=== PATIENT | male | born 1935 | race Caucasian/White ===

== ENCOUNTER 2019-05-20 17:13 | Inpatient (IN) | payer OTHER ==
[~2019-05-20] VITALS: Ht 180.3 cm; Wt 85.3 kg
[2019-05-20 17:38] LABS: BASOPHILS ABSOLUTE AUTO 0.01 K/mm3 (0.00-0.23); BASOPHILS PERCENT AUTO 0 % (0-2); EOSINOPHILS PERCENT AUTO 0 % (0-6); Hematocrit 36.2 % (37.0-53.0); IMMATURE GRAN ABSOLUTE AUTO 0.06 K/mm3 (0.00-0.10); IMMATURE GRAN PERCENT AUTO 1 % (0-1); LYMPHOCYTES ABSOLUTE AUTO 0.86 K/mm3 (0.84-5.20); LYMPHOCYTES PERCENT AUTO 7 % (21-46); MONOCYTES ABSOLUTE AUTO 0.82 K/mm3 (0.16-1.47); MONOCYTES PERCENT AUTO 6 % (4-13); Mean Corpuscular HGB 28.4 pg (26.0-34.0); Mean Corpuscular HGB Conc 30.4 g/dL (31.5-36.5); Mean Corpuscular Volume 94 fL (80-100); Mean Platelet Volume 11.3 fL (9.1-12.4); NEUTROPHILS ABSOLUTE AUTO 11.14 K/mm3 (1.96-9.15); NEUTROPHILS PERCENT AUTO 86 % (41-73); Platelet Count 290 K/mm3 (150-400); RDW Standard Deviation 54.6 fL (35.1-46.3); Red Blood Cell Count 3.87 M/mm3 (4.30-5.90); White Blood Cell Count 12.89 K/mm3 (4.00-11.30)
[2019-05-20 17:50] LABS: Alanine Aminotransfer (ALT/SGP 495 U/L (12-78); Albumin, Blood 2.7 g/dL (3.4-5.0); Albumin/Globulin Ratio 0.8 (0.8-1.8); Alk Phos 80 U/L (50-136); Anion Gap 6 mmol/L (6-16); Aspartate Aminotrans (AST/SGOT 343 U/L (12-37); Bilirubin, Total 1.2 mg/dL (0.1-1.0); Blood Urea Nitrogen 51 mg/dL (8-24); Bun/Creatinine Ratio 31.9 (12.0-20.0); CO2, Blood 30 mmol/L (21-32); CPK Creatine Kinase 591 U/L (39-308); Chloride, Blood 105 mmol/L (98-108); Ethanol (Alcohol), Blood, Med <3 mg/dL; Globulin, Blood 3.3 g/dL (2.2-4.0); Glomerular Filtration Rate 44 (60-); Glucose, Blood 110 mg/dL (70-99); Potassium, Blood 3.6 mmol/L (3.5-5.5); Sodium, Blood 141 mmol/L (136-145)
[2019-05-20 17:53] LABS: International Normalized Ratio 1.38; Prothrombin Time Results 14.5 Sec (9.7-11.5)
[2019-05-20 18:08] LABS: Creatine Kinase MB 29.7 ng/mL (0.0-3.6)
--- NOTE | 2019-05-20 23:00 | NUR ---
INITIAL ASSESSMENT PATIENT ARRIVED TO UNIT AT 2245. PATIENT ORIENTED TO SELF, FAMILY, TOWN, YEAR. PATIENT DOES NOT KNOW CURRENT PRESIDENT, THAT HE IS IN THE HOSPITAL. PATIENT SPEECH GARBLED AND DIFFICULT TO UNDERSTAND AT TIMES. PATIENT WEAK BUT ABLE TO MOVE ALL EXTREMITIES AND ASSIST WITH REPOSITIONING. PATIENT DENIES PAIN. PATIENT AFEBRILE. PATIENT SATTING 90% AND GREATER ON 4 L NC. PATIENT HAS MOIST, NONPRODUCTIVE COUGH. LUNGS CLEAR IN UPPER LOBES AND DIMINISHED IN LOWER LOBES. PATIENT IN SR TO ST WITH PACS, PVCS AND RBBB. HR 90S TO LOW 100S. SBP 140S TO 150S. TRACE EDEMA NOTED TO BUES. 1+ EDEMA TO THIGHS, 2+ EDEMA TO BLES, AND 3+ EDEMA NOTED TO BILAT FEET AND ANKLES. PATIENT HAVING LOOSE BMS. PATIENT COVERED IN FECES UPON ARRIVAL TO UNIT. PATIENT CLEANED IN ER AND AGAIN UPON ARRIVAL TO ICU. PATIENT HAS NOT VOIDED SINCE ARRIVING TO UNIT. GROIN/ WALE AREA REDDENED AND RASHY- CALAZIME CREAM APPLIED. URETHRAL MEATUS EDEMATOUS. SCRATCHES NOTED TO ALL EXTREMITIES. PICS IN PATIENT CHART. NS INFUSING AT 75 MLS/ HOUR. PATIENT GETTING ZOSYN FOR ANTIBIOTIC. BED LOW, CALL LIGHT IN REACH, BED ALARM ON. PATIENT ORIENTED TO UNIT, ROOM AND CALL SYSTEM. WILL CONTINUE TO MONITOR PATIENT FREQUENTLY THROUGHOUT SHIFT.
[2019-05-21 00:14] LABS: Source, Urine Catheter
[2019-05-21 00:18] LABS: Appearance, Urine Clear (Clear); Blood, Urine 4+ (Neg); Color, Urine Amber (P-Yellow); Glucose Qualitative, Urine Neg (Neg); Ketones, Urine 1+ (Neg); Leukocyte Esterase, Urine 1+ (Neg); Nitrite, Urine Neg (Neg); Protein, Urine 3+ (Neg); Specific Gravity, Urine 1.025 (1.003-1.022); Urobilinogen, Urine 2+ (Normal)
[2019-05-21 00:23] LABS: Bilirubin, Urine 1+ (Neg)
[2019-05-21 00:25] LABS: Amorphous Light (0-Heavy); Bacteria Few /hpf; Squamous Epithelial Cells Not Seen /hpf (Few); White Blood Cells, Urine 0-2 /hpf (0-5)
[2019-05-21 00:28] LABS: U Amphetamine Screen Not Detected; U Barbituate Screen Not Detected; U Benzodiazapine Screen Not Detected; U Buprenorphine Screen Not Detected; U Cannabinoids Screen DETECTED; U Cocaine Screen Not Detected; U Methadone Screen Not Detected; U Methamphetamine Screen Not Detected; U Opiates Screen Not Detected; U Oxycodone Screen Not Detected; U Phencyclidine Screen Not Detected; U Propoxyphene Screen Not Detected
[2019-05-21 00:29] LABS: Adenovirus Not Detected (NOT DETECT); Bordetella pertussis Not Detected (NOT DETECT); Chlamydophila pneumoniae Not Detected (NOT DETECT); Coronavirus 229E Not Detected (NOT DETECT); Coronavirus HKU1 Not Detected (NOT DETECT); Coronavirus NL63 Not Detected (NOT DETECT); Coronavirus OC43 Not Detected (NOT DETECT); Human Metapneumovirus Not Detected (NOT DETECT); Human Rhinovirus/Enterovirus Not Detected (NOT DETECT); Influenza A Not Detected (NOT DETECT); Influenza A/2009-H1 Not Detected (NOT DETECT); Influenza A/H1 Not Detected (NOT DETECT); Influenza A/H3 Not Detected (NOT DETECT); Influenza B Not Detected (NOT DETECT); Mycoplasma pneumoniae Not Detected (NOT DETECT); Parainfluenza Virus 1 Not Detected (NOT DETECT); Parainfluenza Virus 2 Not Detected (NOT DETECT); Parainfluenza Virus 3 Not Detected (NOT DETECT); Parainfluenza Virus 4 Not Detected (NOT DETECT); Respiratory Syncytial Virus Not Detected (NOT DETECT)
[2019-05-21 02:04] LABS: Adenovirus F 40/41 Not Detected (NOT DETECT); Astrovirus Not Detected (NOT DETECT); Campylobacter Sp Not Detected (NOT DETECT); Cryptosporidium Not Detected (NOT DETECT); Cyclospora Cayetanensis Not Detected (NOT DETECT); E. Coli O157 Not Detected (NOT DETECT); Entamoeba Histolytica Not Detected (NOT DETECT); Enteroaggregative E. coli-EAEC Not Detected (NOT DETECT); Enteropathogenic E. coli-EPEC Not Detected (NOT DETECT); Enterotoxigenic E. coli-ETEC Not Detected (NOT DETECT); Giardia Lamblia Not Detected (NOT DETECT); Norovirus GI/GII Not Detected (NOT DETECT); Plesiomonas Shigelloides Not Detected (NOT DETECT); Rotavirus A Not Detected (NOT DETECT); Salmonella Sp Not Detected (NOT DETECT); Sapovirus Not Detected (NOT DETECT); Shiga Toxin-prod E. coli-STEC Not Detected (NOT DETECT); Shigella/Enteroin E. coli-EIEC Not Detected (NOT DETECT); Vibrio Cholerae Not Detected (NOT DETECT); Vibrio Sp Not Detected (NOT DETECT); Yersinia Enterocolitica Not Detected (NOT DETECT)
[2019-05-21 02:18] LABS: Troponin I 6.73 ng/mL (0.000-0.040)
[2019-05-21 02:33] LABS: Creatine Kinase MB 18.9 ng/mL (0.0-3.6); Creatine Kinase MB Index 5.4 (0.0-4.0)
[2019-05-21 03:39] LABS: Hematocrit 34.2 % (37.0-53.0); Hemoglobin 10.1 g/dL (13.5-17.5); Mean Corpuscular HGB 27.9 pg (26.0-34.0); Mean Corpuscular HGB Conc 29.5 g/dL (31.5-36.5); Mean Corpuscular Volume 95 fL (80-100); Mean Platelet Volume 11.4 fL (9.1-12.4); Platelet Count 234 K/mm3 (150-400); RDW Standard Deviation 55.8 fL (35.1-46.3); Red Blood Cell Count 3.62 M/mm3 (4.30-5.90)
[2019-05-21 04:09] LABS: Bilirubin, Total 0.9 mg/dL (0.1-1.0); Bun/Creatinine Ratio 31.3 (12.0-20.0); Calcium, Blood 9.2 mg/dL (8.5-10.1); Creatinine, Blood 1.63 mg/dL (0.60-1.20); Globulin, Blood 3.1 g/dL (2.2-4.0); Total Protein, Blood 6.1 g/dL (6.4-8.2)
--- NOTE | 2019-05-21 04:30 | NUR ---
PATIENT SLEEPING SOUNDLY UPON ENTERING ROOM. NEURO STATUS REMAINS UNCHANGED. PATIENT AFEBRILE. NO SIGNS OF PAIN. PATIENT SATTING 90% AND GREATER ON 3 L NC. PATIENT IN SR WITH PACS, PVCS AND BBB. HR 80S TO 90S. SBP IN THE 140S. NGUYỄN IN PLACE, DRAINING DARK TEA COLORED URINE. NO OTHER ACUTE CHANGES TO NOTE ON AT THIS TIME. WILL CONTINUE TO MONITOR.
[2019-05-21 06:03] LABS: PCO2 Arterial 63.8 mmHg (35-45); PO2 Arterial 79.7 mmHg (80-100)
--- NOTE | 2019-05-21 06:13 | NUR ---
PATIENT PLACED ON BIPAP SHORT TIME AGO SATURATIONS BEGAN DROPPING. PATIENT PULLING SMALL TIDAL VOLUMES, RANGING FROM 40S TO LOW HUNDREDS. DR. NAVA CALLED TO BEDSIDE AFTER PATIENT PLACED ON BIPAP AND CONTINUING TO HAVE SMALL TIDAL VOLUMES. DR. NAVA TO BEDSIDE. ORDERED FOR NARCAN 1 MG AND TO CONTINUE MONITORING. INFORMED THAT DRUG SCREEN CAME BACK POSITIVE ONLY FOR CANNIBINOIDS AND THAT NARCAN GIVEN AFTER EMS ARRIVED AND DID NOT AROUSE PATIENT AT ALL. ABG OBTAINED AND RESULTS CALLED TO DR. NAVA BY CHARGE NURSE TORIBIO RENDON. CHARGE NURSE ALSO INFORMED THAT PATIENT'S FIO2 INCREASED ON BIPAP AND THAT PATIENT CONTINUES TO PULL TIDAL VOLUMES RANGING FROM 20S TO 600S. INFORMED CHARGE NURSE TO CONTINUE TO MONITOR. BIPAP SETTINGS CURRENTLY AT 14/10, RATE 12, 80% FIO2. RT REMAINS IN ROOM.
--- NOTE | 2019-05-21 06:39 | NUR ---
DR. NAVA BACK AT PATIENT BEDSIDE. INFORMED OF BIPAP SETTINGS AND SEES TIDAL VOLUMES. PATIENT DOES RESPOND WHEN CHEST IS TOUCHED. 60 MG IV LASIX GIVEN. STATED TO STOP IV FLUIDS AND PLACE TKO. STATED TO CONTINUE TO MONITOR AND PLACE CONSULT FOR PULMONOLOGY TO SEE PATIENT WHEN THEY ARRIVE THIS AM.
--- NOTE | 2019-05-21 06:50 | NUR ---
SHIFT SUMMARY PATIENT ALERT TO SELF, FAMILY, TOWN, FOLLOWING COMMANDS WHEN ARRIVED TO UNIT. PATIENT MORE LETHARGIC THIS AM BUT IS STILL RESPONDING TO VERBAL STIMULI. PATIENT REMAINS WEAK BUT ABLE TO MOVE ALL EXTREMITIES. PATIENT HAS REMAINED AFEBRILE. PATIENT HAS HAD NO COMPLAINTS OF PAIN THIS SHIFT. PATIENT CONTINUES TO HAVE MOIST COUGH. PATIENT SATTED 90% AND GREATER MOST OF THE SHIFT ON RA TO 4 L NC. THIS AM, PATIENT SATS DECREASED. PATIENT INCREASED TO 6 L NC AND THEN ADVANCED TO CPAP. PATIENT PULLING LOW TIDAL VOLUMES. PATIENT CHANGED TO CPAP. PATIENT CURRENTLY AT 14/10, RATE OF 12, AND 80% FIO2; TIDAL VOLUMES RANGING FROM [address] NAVA TO ROOM TWICE TO SEE PATIENT. 1 MG IV NARCAN GIVEN; NO PATIENT RESPONSE. DR. NGUYEN NURSE GIVE 60 MG IV LASIX. CONSULT FOR PULMONOLOGY. DR. NAVA STATED TO CONTINUE TO MONITOR PATIENT. RT CURRENTLY IN ROOM WITH PATIENT. PATIENT REMAINED IN SR TO ST WITH PACS, PVCS AND BBB. HR 80S TO LOW 100S. BP REMAINED STABLE. PATIENT REMAINED EDEMATOUS IN BUES AND BLES. PATIENT HAD 1 LOOSE, BROWN BM THIS SHIFT. GI PANEL SENT TO LAB. PATIENT REMAINED NPO. NGUYỄN DRAINED ADEQUATE AMOUNT OF DARK TEA COLORED URINE. UA AND TOX SENT TO LAB. NO CHANGE TO SKIN. PATIENT REPOSITIONED THROUGHOUT SHIFT. NS CHANGED FROM 75 MLS/ HOUR TO TKO THIS AM AFTER PATIENT'S INCREASING O2 NEEDS. CONSULT PLACED FOR PULMONOLOGY TO SEE PATIENT THIS AM. BED LOW, CALL LIGHT IN REACH. PATIENT DOES NOT APPEAR IN ANY PAIN OR DISTRESS AT THIS TIME. REPORT WILL BE GIVEN SHORTLY TO [facility] DAY SHIFT NURSE.
--- NOTE | 2019-05-21 10:56 | NUR ---
PT IS CLEARLY HAVING JANETT-JJ RESP. WHILE ON BIPAP WITH FREQUENT ALLARMS. PT IS ABLE TO FOLLOW COMMMANDS AND CUFF FOLDER HANDS. IS GENERALLY WEAK AND DECONDITIONED. PT VS AND STATS NOTED. UO IS TEA COLORED AND PATENT. PT HAS 4+ FEET EDEMA AND SL LESS LEG IS ASSENDED. IV TKO. PT BIPAP SETTINGS 20/10 AT 85% AND TAPPERED DOWN PER RT.
--- NOTE | 2019-05-21 11:27 | NUR ---
FELICITAS SIN AND SERGEY HAVE BEEN IN TO SEE AND ASSESS PT. ORDERS NOTED. ECHO COMPLETE.
--- NOTE | 2019-05-21 13:21 | NUR ---
echocardiogram complete
--- NOTE | 2019-05-21 14:58 | NUR ---
PRIOR DISCUSSIONS WERE HAD WITH FAMILY WHO FEEL THAT THERE FATHER DOES NOT WANT ANY AGRESSIVE CARE. WILL INQUIRE WITH DR AND ADJUST PT CODE STATUS PER FAMILY UNDERSTANDING OF PT WISHES.
--- NOTE | 2019-05-21 15:31 | NUR ---
BIPAP HAS BEEN D/C AND PT PLACED ON NC CURRENTLY AT 4L AND WILL ASSESS. FAMILY HAVE BEEN INFORMED AND EDUCATED TO THE CHANGES IS THE ORDER STATUS OF THE PT AND WHAT THIS WILL INVOLVE.
--- NOTE | 2019-05-21 15:45 | NUR ---
CURRENT FAMILY MEMBERS ARE UNABLE TO GIVE PT HX DUE TO POOR FAMILY RELATIONS AND NO ACCURATE KNOWLEDGE OF PT CURRENT EXACT DAILY HABITS OR MEDICAL NEEDS. FAMILY DOES INDICATE THAT THEY ARE HX OR MEDICATIONS. .
--- NOTE | 2019-05-21 16:10 | NUR ---
AGGRESSIVE ORAL CARE COMPLETED. PT IS AWAKE,VERBAL WITH AND AWARE OF FAMILY IN ROOM. PT HAS MOD STRONG COUGH BUT NOT MOBILIZING SECREATIONS WELL. SX IS CREAMY YELLOW/WHITE AND THICK. WILL SL IV AND RECORD I/O IN PREP FOR PT TRANSFER TO [facility].
--- NOTE | 2019-05-21 16:36 | NUR ---
REPORT CALLED TO RUDDY RN AND PT TO BE TRANSFERED TO [facility] VIA BED PATTI.
--- NOTE | 2019-05-21 18:37 | NUR ---
PT ARRIVED TO ROOM 337 VIA BED AND WAS TRANSFERRED TO NEW BED. PT TOLERATED WELL. FAMILY PRESENT IN ROOM. WILL MONITOR
[2019-05-22 05:59] LABS: BASOPHILS ABSOLUTE AUTO 0.02 K/mm3 (0.00-0.23); BASOPHILS PERCENT AUTO 0 % (0-2); EOSINOPHILS PERCENT AUTO 0 % (0-6); Hematocrit 34.6 % (37.0-53.0); IMMATURE GRAN ABSOLUTE AUTO 0.08 K/mm3 (0.00-0.10); IMMATURE GRAN PERCENT AUTO 1 % (0-1); LYMPHOCYTES PERCENT AUTO 6 % (21-46); MONOCYTES ABSOLUTE AUTO 1.56 K/mm3 (0.16-1.47); MONOCYTES PERCENT AUTO 11 % (4-13); Mean Corpuscular HGB Conc 28.9 g/dL (31.5-36.5); Mean Corpuscular Volume 97 fL (80-100); Mean Platelet Volume 10.9 fL (9.1-12.4); NEUTROPHILS ABSOLUTE AUTO 11.91 K/mm3 (1.96-9.15); NEUTROPHILS PERCENT AUTO 82 % (41-73); Platelet Count 184 K/mm3 (150-400); RDW Coefficient Variation 16.3 % (11.7-14.2); Red Blood Cell Count 3.57 M/mm3 (4.30-5.90); White Blood Cell Count 14.47 K/mm3 (4.00-11.30)
[2019-05-22 06:17] LABS: Albumin, Blood 2.6 g/dL (3.4-5.0); Albumin/Globulin Ratio 0.8 (0.8-1.8); Bilirubin, Total 0.8 mg/dL (0.1-1.0); Bun/Creatinine Ratio 27.5 (12.0-20.0); Creatinine, Blood 1.82 mg/dL (0.60-1.20); Globulin, Blood 3.2 g/dL (2.2-4.0); Magnesium, Blood 2.6 mg/dL (1.6-2.4); Phosphorus, Blood 4.9 mg/dL (2.5-4.9); Potassium, Blood 4.2 mmol/L (3.5-5.5); Total Protein, Blood 5.8 g/dL (6.4-8.2)
--- NOTE | 2019-05-22 06:32 | NUR ---
SHIFT SUMMARY PATIENT SLEPT MOST OF THE NIGHT. HE HAD NO COMPLAINTS OF PAIN AND SHOWED NO SIGNS OF STRUGGLING TO BREATHE. PATIENT HAD CONGESTED SOUNDING COUGH. BOTH IVS PATENT AND FLUSHED. NGUYỄN PATENT AND FLOWS TO GRAVITY. PATIENT CURRENTLY ON 4 LITERS O2 VIA NASAL CANULA. BED IN LOWEST POSITION WITH WHEELS LOCKED AND ALARM ON. CALL LIGHT WITHIN REACH. REPORT GIVEN TO ONCOMING RN.
--- NOTE | 2019-05-22 14:13 | NUR ---
This specification writer met with Pravin at 1230 this afternoon. Pravin awakened when his name was called. He denies pain, N/V or SOB. He reports he is very thirsty and his ice water at bedside was handed to him. He is able to drink water through the straw without difficutly. Pravin reports he lives alone and he fell and was there for awhile. He has trouble with remembering events. Dr. Centeno visited with him this morning and Pravin states he doesn't remember the doctor ever coming to talk to him. He is able to help readjust himself in bed with minimal assistance. Pravin states he doesn't have a regular doctor and hasn't seen one in over 7 years. "I don't trust doctors. The one I used to have didn't like me and I didn't like him." He declined to tell this specification writer the doctor he used to have. Currently Pravin is awake and alert, has some memory decifits. He requested water multiple times and sang a song to this specification writer about drinking water. He asks when he can go home. ELIEZER RN briefly visited during this time. Will plan to contact pt's son to start formulating a discharge plan. Spoke with Pt's son Catarino on the phone. Catarino reports his father lives alone and has been increasing weaker over the past 6 months or so. Catarino also states that he has noticed his dad having increasing confusion over the past 6-8 weeks or more. Pravin no longer drives, he stopped driving 1-2 years ago. Catarino states that they family has considered getting Pravin some help at home but "haven't gotten around to it." Catarino reports they have spoked once about the possibility of [employer] but nothing more came of that. Catarino reports no family members can take Pravin into their homes and no one can stay with Pravin as they work. Catarino reports Pravin receives housing assistance through the [facility] housing authority. He reports his dad has an income of about $800/month. Pravin doesn't have a spice room worker through [facility] according to Catarino. Pravin has [employer] insurance. Discussed options for care going forward. At this time Pravin doesn't appear to be emmiment. Talked with Catarino berrios the possibiltiy of Pravin improving and possibly being able to show improvement that rehab may be an option. If Pravin rapidly deteriorates over the next day or two he may not leave the hospital. Discussed the third option of Pravin remaining stable but not able to participate in rehab which would make placement in some type of facility or requiring assistance in his home with some care a possibility. Explained to Pravin that staff will work with him and his dad for a safe discharge plan. Also explained that Pravin would not be able to stay in the hospital indefinitely. Currently he is on comfort care which is what Catarino wishes to continue at this time. Pravin has a history of dementia, COPD, arthritis, HTN. 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 EF 25-30% at this time. Will need to review to see if he would be hospice eligible should that remain the course of treatment. Catarino is planning to come visit his dad this afternoon. Will plan to meet with Catarino, ELIEZER RN, and PC when he arrives to discuss plan of care going forward.
--- NOTE | 2019-05-22 16:20 | NUR ---
SHIFT SUMMARY PT IS A/O X 1-2 AT TIMES. PT CONTINUES ON COMFORT CARE. HE HAS BEEN RESTING IN BED MOST OF THE DAY AWAKING TO TAKE DRINKS OF WATER. PT DENIES ANY PAIN OR DISCOMFORT. HIS FAMILY IS HERE NOW WAITING TO MEET WITH COUNTER CUTTER. GOPI ARIAS. PT IS PLEASANT AND CAN MAKE HIS NEEDS KNOWN AT TIMES.
--- NOTE | 2019-05-22 18:01 | NUR ---
called to meet with family regarding hospice. pt more alert today and having some trouble tracking and remebering conversation but wanting to participate. pt has improved today and wanting to walk. review of pt history and diagnostics and he may not qualify for hospice or be appropriate. Review with family intermediate plan of care. Pt needs to change his living situation and get more financial support through [employer]. pt states he has had minimal medical care most of his adult life. Discussed level of care and filling out a polstt that respects his wishes. pt states he now wants care and treatment and is enjoying the attention and care. Family states they can not care for him at this time. Advised family that they are going to have to care for him. Advied son he needs to go to [facility] in the am and do an intake. Review with hospice patient care secretary to get rehab eval to see if he can go to snf. Review with family that if plan fails then we need to revisit hospice. Review with family risk of readmissions and cost to patient and family. Advised raquel of the 45 days needed to process intake and that is the most stressful time for families. Advised the sooner the better and getting him in an assited living and some soical time would be quality of life for their loved one. They want to discuss levels of care with him and revisit a polst. After careful review of what service can offer him for care and comfort they are driven to get him signed up on benefits. Praised them for their support.
--- NOTE | 2019-05-23 05:01 | NUR ---
SHIFT SUMMARY PT HAS HAD NO ACUTE CHANGES THIS SHIFT, HAS BEEN AWAKE T/O MOST OF SHIFT. PT HAS BEEN A&O W/GOOD PO INTAKE THIS SHIFT. PT IS BEDRESTING WATCHING TV & DRINKING WATER AT THIS TIME, CALL LIGHT IN REACH, WILL CONT TO MONITOR UNTIL REPORT GIVEN TO DAY RN.
[2019-05-23 05:26] LABS: BASOPHILS PERCENT AUTO 0 % (0-2); EOSINOPHILS ABSOLUTE AUTO 0.03 K/mm3 (0.00-0.68); EOSINOPHILS PERCENT AUTO 0 % (0-6); Hematocrit 28.5 % (37.0-53.0); Hemoglobin 8.7 g/dL (13.5-17.5); IMMATURE GRAN ABSOLUTE AUTO 0.04 K/mm3 (0.00-0.10); IMMATURE GRAN PERCENT AUTO 1 % (0-1); LYMPHOCYTES ABSOLUTE AUTO 0.91 K/mm3 (0.84-5.20); LYMPHOCYTES PERCENT AUTO 11 % (21-46); MONOCYTES ABSOLUTE AUTO 0.81 K/mm3 (0.16-1.47); MONOCYTES PERCENT AUTO 10 % (4-13); Mean Corpuscular HGB 28.2 pg (26.0-34.0); Mean Corpuscular HGB Conc 30.5 g/dL (31.5-36.5); Mean Platelet Volume 11.7 fL (9.1-12.4); NEUTROPHILS ABSOLUTE AUTO 6.49 K/mm3 (1.96-9.15); NEUTROPHILS PERCENT AUTO 78 % (41-73); Platelet Count 155 K/mm3 (150-400); RDW Standard Deviation 54.5 fL (35.1-46.3); Red Blood Cell Count 3.08 M/mm3 (4.30-5.90); White Blood Cell Count 8.28 K/mm3 (4.00-11.30)
[2019-05-23 05:32] LABS: Mean Corpuscular Volume 93 fL (80-100)
[2019-05-23 05:46] LABS: Bun/Creatinine Ratio 27.3 (12.0-20.0); Calcium, Blood 8.5 mg/dL (8.5-10.1); Creatinine, Blood 1.43 mg/dL (0.60-1.20); Potassium, Blood 3.1 mmol/L (3.5-5.5)
--- NOTE | 2019-05-23 10:26 | NUR ---
Provided armstrong and osmin care prior and after removal of armstrong. Education provided for post armstrong removal.
--- NOTE | 2019-05-23 10:52 | NUR ---
Patient gave verbal permission for me to care for him this morning.
--- NOTE | 2019-05-23 16:24 | NUR ---
SHIFT SUMMARY PT IS A/O X 3-4 , HE IS FORGETFUL AT TIMES. HE HAS NO C/O PAIN. PT CONTINUES TO HAVE A GOOD APPETITE AND HAS BEEN DRINKING FLUIDS FREELY THOUGHOUT THE DAY. LABORER OPERATOR REPORT SINUS RHYTHM WITH PACS AND PT DENIES ANY CHEST PAIN OR SOB. PT CONTINUES TO RECEIVE BREATHING TX FROM RT. PT WORKED WITH THERAPY TODAY AND WAS ABLE TO TRANSFER WITH X 1 ASSIST AND FWW. PT SON WAS AT BEDSIDE FOR MOST OF THE AFTERNOON. PT IS ABLE TO MAKE HIS NEEDS KNOWN WHEN ASKED. CALL LIGHT IN REACH.
--- NOTE | 2019-05-23 23:07 | NUR ---
GOPI WAS NANCY'D EARLIER TODAY, HAS VOIDED SEVERAL TIMES THIS SHIFT. SEE INTAKE/OUTPUT DOCUMENTATION FOR DETAILS. CALL LIGHT IN REACH.
[2019-05-24 04:56] LABS: Base Excess Venous 18.6 mmol/L; PCO2 Venous 66.9 mmHg (38-42); PO2 Venous 47.9 mmHg (38-42); pH Blood Venous 7.42 (7.34-7.37)
[2019-05-24 05:06] LABS: BASOPHILS PERCENT AUTO 0 % (0-2); EOSINOPHILS ABSOLUTE AUTO 0.06 K/mm3 (0.00-0.68); EOSINOPHILS PERCENT AUTO 1 % (0-6); Hematocrit 28.6 % (37.0-53.0); Hemoglobin 8.7 g/dL (13.5-17.5); IMMATURE GRAN ABSOLUTE AUTO 0.05 K/mm3 (0.00-0.10); IMMATURE GRAN PERCENT AUTO 1 % (0-1); LYMPHOCYTES ABSOLUTE AUTO 0.96 K/mm3 (0.84-5.20); LYMPHOCYTES PERCENT AUTO 12 % (21-46); MONOCYTES ABSOLUTE AUTO 0.85 K/mm3 (0.16-1.47); MONOCYTES PERCENT AUTO 11 % (4-13); Mean Corpuscular HGB 28.2 pg (26.0-34.0); Mean Corpuscular HGB Conc 30.4 g/dL (31.5-36.5); Mean Corpuscular Volume 93 fL (80-100); Mean Platelet Volume 11.5 fL (9.1-12.4); NEUTROPHILS ABSOLUTE AUTO 5.88 K/mm3 (1.96-9.15); NEUTROPHILS PERCENT AUTO 75 % (41-73); Platelet Count 147 K/mm3 (150-400); RDW Coefficient Variation 15.9 % (11.7-14.2); Red Blood Cell Count 3.09 M/mm3 (4.30-5.90)
[2019-05-24 05:41] LABS: Bun/Creatinine Ratio 24.5 (12.0-20.0); Calcium, Blood 8.4 mg/dL (8.5-10.1); Creatinine, Blood 1.51 mg/dL (0.60-1.20); Potassium, Blood 2.9 mmol/L (3.5-5.5)
--- NOTE | 2019-05-24 05:49 | NUR ---
RESTING QUIETLY AT INTERFALS. SOME EPISODES OF WAKEFULNESS AND CALLING OUT. IV ANTIBIOTICS ADMINISTERED ORDERED - SEE MAR FOR DETAILS. CALL LIGHT IN REACH,
--- NOTE | 2019-05-24 17:27 | NUR ---
Met at preplanned time with pt's son Catarino and pt in his room. Catarino asked that I reviewed code status, implications, options with Minesh and to have his wishes documented. We had an indepth discussion with end result of pt stating he wanted all measures taken to preserve life except CPR or intubation. Explained limited code and and limited interventions. I verbalized what I understood pt to be saying and asked him to confirm that I was correct. Pt does not want CPR or intubation. He would be ok with defib if he had a shockable rhythm and he would want medications provided that may help organ function. His son is supportive of his wishes and feels his dad understood our conversation well. POLST form completed documenting pt's stated wishes and Dr notified of new POLST form for signature. VO obtained and entered for Limited code. Pt states he is achey from being in bed but denies pain. He is sitting up in chair after lunch with O2 on. We discussed deep breathing and bed mobility to prevent complications of immobility. Son reports pt is going to [facility] and then plan is for [place]. Son states his dad is not happy about not returning to apartment but is agreeable to this change in living situation. Pt has two daughters locally also, who were present in the ER with him. Son is Catarino "Viviana" Connie and his number is [phone]. He does not have cell coverage at his home and his home# is [phone]. Plan to get Dr eva DOWNING scanned to EMR & make copies for pt/family before discharge. Planned with pt to visit tomorrow also.
--- NOTE | 2019-05-24 19:21 | NUR ---
SHIFT SUMMARY: PT HX DMENTIA; A&O X2. PER SON & PALIATIVE CARE, PT CODE STATUS CHANGED TO DNR c LIMITED INTERVENTIONS (DEFIB & MEDICATIONS OK); POLST OUTSIDE PTs ROOM TO BE SIGNED BY HOSPITALIST. PT ON O2 @ 3L VIA NC; ROOM AIR AT HOME. IV ABX FOR UTI; DIURETICS CONTINUING. REPORT GIVEN TO ONCOMING RN.
--- NOTE | 2019-05-25 04:05 | NUR ---
CYBER POLICY AND STRATEGY PLANNER SUMMARY PT A/O X3. DOES NOT KNOW DATE. HX OF DEMENTIA. RESPONSE IS SLOWED. ON 3 L HUMIDIFIED O2 VIA NASAL CANNULA. LUNGS COARSE AND WHEEZY THROUGHOUT. ANTIBIOTICS FOR UTI. VSS, NO ACUTE CHANGES. CALL LIGHT WITHIN REACH, BED IN LOWEST POSITION. WILL CONTINUE TO MONITOR.
[2019-05-25 05:05] LABS: BASOPHILS ABSOLUTE AUTO 0.01 K/mm3 (0.00-0.23); BASOPHILS PERCENT AUTO 0 % (0-2); EOSINOPHILS ABSOLUTE AUTO 0.06 K/mm3 (0.00-0.68); EOSINOPHILS PERCENT AUTO 1 % (0-6); Hematocrit 30.1 % (37.0-53.0); Hemoglobin 9.3 g/dL (13.5-17.5); IMMATURE GRAN ABSOLUTE AUTO 0.04 K/mm3 (0.00-0.10); IMMATURE GRAN PERCENT AUTO 1 % (0-1); LYMPHOCYTES ABSOLUTE AUTO 1.38 K/mm3 (0.84-5.20); LYMPHOCYTES PERCENT AUTO 17 % (21-46); MONOCYTES ABSOLUTE AUTO 0.97 K/mm3 (0.16-1.47); MONOCYTES PERCENT AUTO 12 % (4-13); Mean Corpuscular HGB 28.3 pg (26.0-34.0); Mean Corpuscular HGB Conc 30.9 g/dL (31.5-36.5); Mean Corpuscular Volume 92 fL (80-100); Mean Platelet Volume 11.7 fL (9.1-12.4); NEUTROPHILS ABSOLUTE AUTO 5.81 K/mm3 (1.96-9.15); NEUTROPHILS PERCENT AUTO 70 % (41-73); Platelet Count 139 K/mm3 (150-400); RDW Coefficient Variation 15.9 % (11.7-14.2); RDW Standard Deviation 53.2 fL (35.1-46.3); Red Blood Cell Count 3.29 M/mm3 (4.30-5.90); White Blood Cell Count 8.27 K/mm3 (4.00-11.30)
[2019-05-25 05:25] LABS: Albumin, Blood 2.4 g/dL (3.4-5.0); Anion Gap 3 mmol/L (6-16); Blood Urea Nitrogen 36 mg/dL (8-24); CO2, Blood 41 mmol/L (21-32); Calcium, Blood 8.4 mg/dL (8.5-10.1); Chloride, Blood 94 mmol/L (98-108); Glomerular Filtration Rate 48 (60-); Glucose, Blood 120 mg/dL (70-99); Potassium, Blood 3.5 mmol/L (3.5-5.5); Sodium, Blood 138 mmol/L (136-145)
--- NOTE | 2019-05-25 12:54 | NUR ---
Pal care visit. Pt asleep in his chair. He did not wake to voice or gentle touch. POLST form completed yesterday has been signed by . Copies made for son, CM, scanning to EMR. Original and multiple copies for pt/Son left on pt's chart. Discussed with Julia MARTINS and copy given to her. Son reported plan for SNF and then relocation to [place] when we met yesterday. This was also reported to ELIEZER. POLST taken to Medical Records.
--- NOTE | 2019-05-25 16:48 | NUR ---
NO ACUTE CHANGES TO PT. IS PLEASANT AND ORIENTED THOUGH SOMEWHAT CONFUSED AT TIMES. HE WAS UP IN CHAIR THIS AFTERNOON. FAMILY PRESENT FOR PART OF THE DAY. CALL LIGHT WITHIN REACH.
--- NOTE | 2019-05-25 18:17 | NUR ---
Initial spiritual care note: Mr. Bella was alone in room. He was welcoming of visit and companionship. Although not jehovah's witness, he did appear to enjoy being heard and affirmed. He admits to feeling concerned about life changes, and tells me heis "not sure" where he will end up. When asked what he thinks about these changes, he shrugs and says, "it has to happen." He seemed distabt at times and other moments engaged. I provided assurance of care and concern, and Mr. Bella responded well to me. Ui Programmer services will remain available.
--- NOTE | 2019-05-26 04:32 | NUR ---
DE ICER ELEMENT WINDER SUMMARY PT A/O X3 WITH OCCASIONAL CONFUSION. PT FIGIDY THROUGHOUT THE NIGHT. HE PULLED OFF HIS GOWN MULTIPLE TIMES AND TRIED TO GET OUT OF BED A COUPLE OF TIMES. BED ALARM ON. SOME OF HIS QUESTIONS HE ASKED ME DID NOT MAKE SENSE SUCH IF I KNEW IF THERE WAS A "SOCIAL SECURITY OFFICE" CONNECTED TO THIS BUILDING. I REMINDED HIM THAT HE IS IN THE HOSPITAL. ATIVAN 0.5 MG IV GIVEN. PT RESTED BETTER ONCE ATIVAN WAS GIVEN. PT ON 4 L HUMIDIFIED O2 NASAL CANNULA MAJORITY OF SHIFT SATTING AT 100% I TITRATED IT DOWN TO 3L AND WILL MONITOR HOW HE DOES. VSS. NO COMPLAINTS OF PAIN, NAUSE OR SOB.
[2019-05-26 05:58] LABS: Albumin, Blood 2.6 g/dL (3.4-5.0); Anion Gap 4 mmol/L (6-16); Blood Urea Nitrogen 38 mg/dL (8-24); Bun/Creatinine Ratio 26.4 (12.0-20.0); CO2, Blood 41 mmol/L (21-32); Calcium, Blood 8.9 mg/dL (8.5-10.1); Chloride, Blood 94 mmol/L (98-108); Creatinine, Blood 1.44 mg/dL (0.60-1.20); Glomerular Filtration Rate 50 (60-); Glucose, Blood 97 mg/dL (70-99); Phosphorus, Blood 2.6 mg/dL (2.5-4.9); Potassium, Blood 3.9 mmol/L (3.5-5.5); Sodium, Blood 139 mmol/L (136-145)
--- NOTE | 2019-05-26 10:18 | NUR ---
1000 PT IS DECLINING. CAME IN AND FOUND HIM GROGGY AND PULLING AT LINES. O2 HAD BEEN PULLED OUT AND PT WAS PULLING ON IV LINES. O2 REPLACED AND PT WAS SATING AT 75%. DOCTOR NOTIFIED. FAMILY CALLED AND PER SON ROBERTO CARLOS FRANK, PT WAS PUT BACK DNR. PT WAS WET AND CHANGED BY BANK SECRECY ACT OFFICER AND NURSE. PT CONTINUES TO TRY TO PULL ON LINES AND NEEDED REDIRECTION. PT IS SLEEPING AT THIS TIME AND HAS O2 IN HIS MOUTH SINCE HE IS A MOUTH BREATHER. PT IS CALM . FAMILY TO COME IN AROUND 1130 PER SON.
--- NOTE | 2019-05-26 15:00 | NUR ---
STATUS CHANGED TO COMFORT CARE PER FAMILY REQUEST Notified by RN that family, son, Viviana, daughters, Rebeca and Cesia were in pt's room and would like to talk about comfort care in light of pt's change/decline in status over the past 1-2 days. Reviewed EMR and case conferenced with RN and DR edmonds: Pt status and family request to reconsider comfort care. Prior to my visit. Pt had a difficlult night with increased confusion and agitation, pulling off of O2, resulting in severe hypoxia and increased respiratory distress. Upon entering the room, found pt asleep/unresponsive to voice in bed with covers pulled up to chin or over head at times. He is extremely pale and sl circumoral cyanosis noted. O2 nasal cannula in mouth. Pt wearing attends and having some urine output. He has had increasing difficulty with swallowing over the past 24+ hours per family and RN. He still has patent IV access for medications. He moans out at times and appears restless with movement in bed sporatically during my visit. He does not seem to be experiencing respiratory distress at rest at this time and I do not hear upper airway secretions currently. Discussed Comfort Care with family and answered their questions. His three children did not grow up with their dad and have not spent a lot of time with him until recent years so did not feel they knew his values in depth. They are not aware of any medication allergies and eMAR lists NKMA. Discussed medications and measures for comfort that may be employed. Three children in agreement that they would like Minesh placed on comfort care. We discussed what to expect with change in status, including d/c of labs and testing, d/c IV fluids & meds other than those for comfort, no restart of IV if his current one was no longer patent, no cardiac or regular I/O or vs monitoring, Food and fluids per his ability to swallow and desire only. Family verbalize understanding and agreement. Unfortunately, they have weathered several family deaths in recent years and are familiar with the process. Verified with family that Minesh is not a and does not have medicaid for services currently. Son, Viviana, has started the process and has provided APD with financial info. Pt receives SSI and meets financial requirement on monthly income but has >$2000 in bank account. Minesh never put any of his children on his banking or did a durable power of rug dyer so they cannot access his account to help pay for his care if d/c'd from the hospital. All of this was passed on to CM. Plan is to support on comfort care and reassess EOL progression on Wednesday. If pt is stable for transfer at that time, CM will work with family on dc planning. All of above discussed with and VO for comfort care obtained and entered.
--- NOTE | 2019-05-26 17:46 | NUR ---
PT AWAKE AND TALKING WITH FAMILY. HAS BEEN SLEEPING ALL DAY. TOOK IN ICE CREAM AND TOLERATED WELL. NGUYỄN PATENT. NO COMPLAINTS OR DISTRESS NOTED.
--- NOTE | 2019-05-26 21:54 | NUR ---
2131 PT YELLING AND SCREAMING OUT LOUDLY AND REFUSING FOLLOW AND ANY REDIRECTIONS; ATIVAN 1 MG IVP GIVEN.
--- NOTE | 2019-05-27 03:27 | NUR ---
SHIFT SUMMARY: 83 Y/O MALE ON COMFORT CARE STARTED LAST NIGHT; ALERT TO PERSON ONLY; SLIGHT ANXIETY AT TIMES WITH ATIVAN 1MG IVP GIVEN X 1 WITH RELIEF FELT; C/O GENERALIZED DISCOMFORT WITH ROXANOL 20MG SL GIVEN WITH RELIEF FELT; NGUYỄN DRAINING CLEAR YELLOW FLUID; BED ALARM APPLIED, BED LOW POSITION WITH CALL LIGHT AT SIDE; PT RESPOSITIONED FREQUENTLY ALL SHIFT BY NURSING STAFF.
--- NOTE | 2019-05-27 07:23 | NUR ---
PT IS NONRESPONSIVE, COOL CLAMMY, PALE. DURING REPORT W TOBIN RN PT BREATHING VERY SHALLOW, AGONAL. HR & PULSE FAINT. @ FIRST SEEMED THAT PT HAD HOWEVER HE THEN RESUMED BREATHING APPROX 12 RESP/MIN., LESS DIAPHORETIC, SOME COLOR RETURN. NOC RN NOTIFY PT'S SON & OUTSIDE BARREL LATHE OPERATOR. NO S/S PAIN @ THIS TIME, WILL CONT TO MX & PROVIDE COMFORT CARE.
--- NOTE | 2019-05-27 07:44 | NUR ---
0730 PT , ATTEMPT TO NOTIFY PT'S SON UNSUCCESSFUL. DR YANES NOTIFIED, VICE PRESIDENT CLIENT SERVICES NOTIFIED.
== END 2019-05-27 07:30 ==
LOC: ER 17:13 → MEDS 21:58 → PCU 21:58 → ICUW 21:58 → MEDS 05-21 16:59
PROVIDERS: Emergency Medicine; Family Medicine; Internal Medicine; Internal Medicine Critical Care Medicine; ADMIT Internal Medicine
PROC: 5A09457 Assistance with Respiratory Ventilation, 24-96 Consecutive Hours, Continuous Positive Airway Pressure (ICD-10-PCS; principal; 2019-05-20)
DX: I13.0 Hypertensive heart and chronic kidney disease with heart failure and stage 1 through stage 4 chronic kidney disease, or unspecified chronic kidney disease (principal); I21.4 Non-ST elevation (NSTEMI) myocardial infarction; J96.01 Acute respiratory failure with hypoxia; I50.21 Acute systolic (congestive) heart failure; J69.0 Pneumonitis due to inhalation of food and vomit; G92 Toxic encephalopathy; E43 Unspecified severe protein-calorie malnutrition; J96.02 Acute respiratory failure with hypercapnia; S02.109A Fracture of base of skull, unspecified side, initial encounter for closed fracture; M62.82 Rhabdomyolysis; N17.9 Acute kidney failure, unspecified; E27.40 Unspecified adrenocortical insufficiency; I42.9 Cardiomyopathy, unspecified; Z51.5 Encounter for palliative care; N18.3 Chronic kidney disease, stage 3 (moderate); F03.90 Unspecified dementia, unspecified severity, without behavioral disturbance, psychotic disturbance, mood disturbance, and anxiety; I73.9 Peripheral vascular disease, unspecified; E87.6 Hypokalemia; J44.9 Chronic obstructive pulmonary disease, unspecified; W19.XXXA Unspecified fall, initial encounter; R41.89 Other symptoms and signs involving cognitive functions and awareness; F17.210 Nicotine dependence, cigarettes, uncomplicated; E78.5 Hyperlipidemia, unspecified; M54.9 Dorsalgia, unspecified; G89.29 Other chronic pain; Z68.23 Body mass index [BMI] 23.0-23.9, adult
CPT/HCPCS: 0097U; 0099U; 36415; 36600; 51702; 70450; 71045; 71046; 72125; 80048; 80053; 80069; 81001; 82550; 82553; 82803; 83735; 83880; 84100; 84484; 85025; 85027; 85610; 87086; 92523; 92610; 93005; 93010; 93306; 94640; 94660; 94760; 96361; 96374; 96375; 97110; 97112; 97116; 97162; 97530; 99285-25; A9270-GY; G0480; J1650; J1940; J2060; J2310; J2543; J7030; J7050; P9046